=== PATIENT | female | born 1955 | race Two or more races ===

== ENCOUNTER 2020-11-17 08:04 | Outpatient (REF) | payer OTHER, SELFPAY ==
[2020-11-17 10:17] LABS: MANUAL DIFF FLAG NO
[2020-11-17 10:20] LABS: Basophils Percent Auto 0.4 % (0-2); Eosinophils Absolute Auto 0.1 X10*3/uL (0.0-0.4); Eosinophils Percent Auto 3.1 % (0-4); Imm Gran Abs Auto 0.01 X10*3/uL (0.00-0.03); Imm Gran Pct Auto 0.2 % (0.0-0.4); Lymphocytes Percent Auto 21.7 % (20-40); Mean Corpuscular HGB Conc 32.5 g/dl (31.0-35.0); Mean Corpuscular Hemoglobin 28.4 pg (27.0-33.0); Mean Corpuscular Volume 87.3 fL (80-98); Mean Platelet Volume 9.3 fL (9.4-12.3); Monocytes Absolute Auto 0.3 X10*3/uL (0.1-1.2); Monocytes Percent Auto 7.5 % (2-11); Neutrophils Percent Auto 67.1 % (45-73); Platelet Count 336 X10*3/uL (160-400); Red Blood Count 4.58 X10*6/uL (4.20-5.50); White Blood Count 4.5 X10*3/uL (4.8-10.8)
[2020-11-17 10:46] LABS: Anion Gap 14 (12-20); Blood Urea Nitrogen 11 mg/dL (9-16); Carbon Dioxide 23 mmol/L (22-29); Chloride 108 mmol/L (96-108); Estimated Glomerular Filt Rate > 60; Glucose Fasting 97 mg/dL (60-99); Potassium 4.5 mmol/L (3.3-5.1); Sodium 140 mmol/L (135-145)
== END 2020-11-17 08:05 | disposition home or self-care (01) ==
LOC: HO.10HDL 08:04
PROVIDERS: Visit Provider Family Medicine
DX: I10 Essential (primary) hypertension (principal); D72.819 Decreased white blood cell count, unspecified; R73.9 Hyperglycemia, unspecified
CPT/HCPCS: 36415; 80051; 82565; 82947; 84520; 85025

== ENCOUNTER 2020-11-19 07:02 | Day surgery (SDC) | payer OTHER, SELFPAY ==
--- NOTE | 2020-11-18 09:38 | P.CONAN_ITS ---
Documented by User: Marian Morales NP 11/18/20 10:05 HPI - Anesthesia Eval Consult details Narrative: 65yo F for Colonoscopy [facility] Past Medical History Medical History Ascending aorta enlargement Asthma GERD (gastroesophageal reflux disease) HTN (hypertension) Surgical History Surgical History H/O knee surgery Social History Social History Patient Tobacco Use Status: Never used Tobacco Use of substances other than those prescribed or required for medical reasons: No Are you DNR?: No Advance Directives: No Advance Directives Information Provided: Yes Meds Allergies Allergy/AdvReac Type Severity Reaction Status Date / Time No Known Allergies Allergy Verified 11/19/20 07:10 Home Medications Medication Instructions Recorded Confirmed Last Taken Type albuterol sulfate 90 mcg/actuation 2 puff INHALATION Q6H PRN 11/19/20 11/19/20 Unknown History aerosol inhaler (ProAir HFA) fluticasone furoate 100 1 puff PO DAILY 11/19/20 11/19/20 Unknown History mcg/actuation blister powder for inhalation (Arnuity Ellipta) lisinopril 20 mg tablet 1 tab PO DAILY 11/19/20 11/19/20 Unknown History montelukast 10 mg tablet 1 tab PO QPM 11/19/20 11/19/20 Unknown History omeprazole 20 mg capsule,delayed 1 cap PO DAILY 11/19/20 11/19/20 Unknown History release Exam Exam Date and Time: November 18, 2020 0938 Pertinent Lab Results Pertinent Lab Results: Laboratory Tests 11/17/20 11/17/20 08:10 08:10 WBC 4.5 L Hgb 13.0 Hct 40.0 Plt Count 336 Sodium 140 Potassium 4.5 Chloride 108 Carbon Dioxide 23 BUN 11 Creatinine 0.64 Assessment and Plan Assessment Anesthesia Assessment: Chart Reviewed Documented by User: Lily Barrett MD 11/19/20 07:42 [facility] Past Medical History Medical History Ascending aorta enlargement Asthma GERD (gastroesophageal reflux disease) HTN (hypertension) Surgical History Surgical History H/O knee surgery History of Problems with Anesthesia: No Social History Social History Patient Tobacco Use Status: Never used Tobacco Use of substances other than those prescribed or required for medical reasons: No Are you DNR?: No Advance Directives: No Advance Directives Information Provided: Yes Meds Allergies Allergy/AdvReac Type Severity Reaction Status Date / Time No Known Allergies Allergy Verified 11/19/20 07:10 Home Medications Medication Instructions Recorded Confirmed Last Taken Type albuterol sulfate 90 mcg/actuation 2 puff INHALATION Q6H PRN 11/19/20 11/19/20 Unknown History aerosol inhaler (ProAir HFA) fluticasone furoate 100 1 puff PO DAILY 11/19/20 11/19/20 Unknown History mcg/actuation blister powder for inhalation (Arnuity Ellipta) lisinopril 20 mg tablet 1 tab PO DAILY 11/19/20 11/19/20 Unknown History montelukast 10 mg tablet 1 tab PO QPM 11/19/20 11/19/20 Unknown History omeprazole 20 mg capsule,delayed 1 cap PO DAILY 11/19/20 11/19/20 Unknown History release Exam Airway Mallampati Class: II TM Dist: >3cm Loose/Missing/Broken Teeth: No Heart: RRR Lungs: CTA Assessment and Plan Assessment Anesthesia Assessment: Anesthesia Plan Discussed Final Anesthetic Review History of Problems with Anesthesia: No NPO: Yes ASA Class: II Final Preanesthetic Review: Meds/Allgs Chart Reviewed, Consent Obtained/Reviewed and Anes Risks/Benef Reviewed Patient Risk: Low Procedure Risk: Low Anesthetic Plan Anesthetic Plan: MAC: Disposition: Standard PACU
[2020-11-19 07:17] VITALS: BMI 35.1
[2020-11-19 07:28] VITALS: BP 121/70; PULSE 76; RESP 16; TEMP 36.9; O2SAT 94
[2020-11-19] MEDS: Lactated Ringers 1,000 ML 100 ML IVCONT (07:36)
--- NOTE | 2020-11-19 07:50 | MHC.SHP ---
Pre-Procedural Eval Section A Date of Service: 11/19/20 The patient is an INPATIENT: No Section B Chief Complaint: screening Details of Present Illness: see H&P no changes Relevant Family History (Specify if Yes): No Relevant Social History: None Present Medications: see Short Stay Collaborative assessment Medical History: No relevant PMH History of Previous Operations: No relevant previous surgery Allergies: Allergies Allergy/AdvReac Type Severity Reaction Status Date / Time No Known Allergies Allergy Verified 11/19/20 07:10 Review of Systems Sugical H&P ROS: Negative: Constitution, Cardiovascular, Respiratory, Neurological, Psychiatric, Hem-Onc, Allergic/Immunologic, Gastrointestinal, Genitourinary, Musculoskeletal, Integumentary, Endocrine and Eyes/Ears/Nose/Throat Exam Surgical H&P Exam: Normal: HEENT, Normal: Heart, Normal: Lungs, Normal: Extremities, Normal: Abdomen, Normal: Skin and Normal: Neurological Plan Diagnosis/Plan: Unchanged I have reviewed the history and physical and performed a pertinent physical examination on my patient. No changes have occurred unless specified.
--- NOTE | 2020-11-19 08:21 | PM.OP ---
Brief Operative Note Date of Service: 11/19/20 Pre-op diagnosis: screening Post-op diagnosis: same (normal) Surgeon: Aman Salmeron Anesthesia: MAC Was an Financial Assistant used for this Procedure?: No Estimated blood loss (mL): 0 Pathology: none sent Condition: stable Disposition: PACU
[2020-11-19 08:23] VITALS: BP 91/49; PULSE 73; RESP 12; TEMP 36.2; O2SAT 94
[2020-11-19 08:38] VITALS: BP 101/56; PULSE 75; RESP 17; TEMP 36.1; O2SAT 97
--- NOTE | 2020-11-19 08:58 | OP_ITS ---
SURGEON: Aman Salmeron MD INDICATIONS: Colon cancer screening. PREOPERATIVE DIAGNOSIS: POSTOPERATIVE DIAGNOSIS: PROCEDURE PERFORMED: Colonoscopy to the terminal ileum. ESTIMATED BLOOD LOSS: COMPLICATIONS: ANESTHESIA: Monitored anesthesia care. ASSISTANTS: SPECIMENS: DESCRIPTION OF PROCEDURE: The history and physical performed. The risks and benefits of the procedure were explained to the patient. Informed consent was obtained. The patient was placed in left lateral decubitus position. A digital rectal exam was performed and was found to be normal. The Olympus pediatric video colonoscope was introduced into the rectum and advanced to the cecum without difficulty. The cecum was identified by transillumination, palpation, and identification of ileocecal valve. Examination was performed. The scope was removed. She tolerated the procedure well and was taken to recovery area in stable condition. FINDINGS: The terminal ileum was normal. The visualized colonic mucosa was normal. The quality of the prep was good. No polyps were identified. Retroflexed examination showed some small internal hemorrhoids. IMPRESSION: Negative screening colonoscopy. RECOMMENDATION: 1. Follow up as needed. 2. Repeat colonoscopy is recommended in 10 years for average risk individuals. MD ISRAEL Ruano/JOSE / [id number]
== END 2020-11-19 09:32 | disposition home or self-care (01) ==
PROVIDERS: PCP Family Medicine; Visit Provider Internal Medicine Gastroenterology
PROC: 0DJD8ZZ Inspection of Lower Intestinal Tract, Via Natural or Artificial Opening Endoscopic (ICD-10-PCS; CPT 45378; principal; 2020-11-19 08:00)
DX: Z12.11 Encounter for screening for malignant neoplasm of colon (principal); I10 Essential (primary) hypertension; Z79.899 Other long term (current) drug therapy
CPT/HCPCS: 45378

== ENCOUNTER 2021-07-16 08:07 | Outpatient (REF) | payer OTHER, SELFPAY ==
[2021-07-16 09:07] LABS: Anion Gap 11 (12-20); Blood Urea Nitrogen 9 mg/dL (9-16); Carbon Dioxide 27 mmol/L (22-29); Chloride 107 mmol/L (96-108); Estimated Glomerular Filt Rate > 60; Sodium 140 mmol/L (135-145)
== END 2021-07-16 08:08 | disposition home or self-care (01) ==
LOC: HO.LAB 08:07
PROVIDERS: PCP Family Medicine; Visit Provider Family Medicine
DX: I10 Essential (primary) hypertension (principal)
CPT/HCPCS: 36415; 80051; 82565; 84520

== ENCOUNTER 2021-12-20 17:12 | Outpatient (REF) | payer OTHER, SELFPAY ==
[2021-12-20 17:42] LABS: Appearance Urine Clear; Color Urine Yellow; Glucose Urine UA Negative (Negative); Leukocyte Esterase Urine Small (1+) (Negative); Nitrite Urine Negative (Negative); PH 5.5 (5.0-9.0); Specific Gravity - Urine <= 1.005 (1.005-1.025); UMIC TRIGGER UA YES; Urine Blood Negative (Negative); Urine Ketones Negative (Negative); Urine Protein Negative (Neg-Trace)
[2021-12-20 17:48] LABS: Bacteria Urine 1+ (None Seen); Hyaline Casts Urine 0-2 /LPF (0-2); RBC Urine 0-2 /HPF (0-2); Squamous Epithelial Cell Urine 0-2 /HPF (0-2)
== END 2021-12-20 17:13 | disposition home or self-care (01) ==
LOC: HO.LNP 17:12
PROVIDERS: Visit Provider Family Medicine
DX: R30.0 Dysuria (principal)
CPT/HCPCS: 81001; 87086; 87088; 87186

== ENCOUNTER 2022-05-25 09:44 | Outpatient (REF) | payer MEDICARE, OTHER, SELFPAY ==
[2022-05-25 11:10] LABS: Anion Gap 13 (12-20); Blood Urea Nitrogen 12 mg/dL (9-16); Carbon Dioxide 23 mmol/L (22-29); Chloride 109 mmol/L (96-108); Estimated Glomerular Filt Rate > 60; Potassium 4.4 mmol/L (3.3-5.1); Sodium 141 mmol/L (135-145)
== END 2022-05-25 09:45 | disposition home or self-care (01) ==
LOC: HO.10HDL 09:44
PROVIDERS: Visit Provider Family Medicine
DX: I10 Essential (primary) hypertension (principal)
CPT/HCPCS: 36415; 80051; 82565; 84520

== ENCOUNTER 2022-11-13 16:14 | Outpatient (REF) | payer MEDICARE, OTHER, SELFPAY ==
--- NOTE | ~2022-11-13 | XR_ITS ---
EXAMINATION: XR HAND, LEFT CLINICAL INFORMATION: Pain left hand along the fifth metacarpal. COMPARISON: None available. TECHNIQUE: PA, lateral, and oblique views of the left hand. FINDINGS: Severe degenerative changes first carpometacarpal joint with subluxation, destructive joint space narrowing and hypertrophic change. No displaced fracture of the fifth metacarpal. XR/XR hand LT min 3V IMPRESSION: 1. Severe degenerative changes first carpometacarpal joint. 2. No displaced fracture of the fifth metacarpal. Recommend follow-up imaging in 10-14 days if fracture is suspected. Additional imaging with CT scan or MRI should be considered for better visualization as these modalities are much more sensitive for detection of fracture or other underlying pathology.
== END 2022-11-13 16:15 | disposition home or self-care (01) ==
LOC: HO.XRAY 16:14
PROVIDERS: PCP Family Medicine; Visit Provider Family Medicine
DX: M79.642 Pain in left hand (principal)
CPT/HCPCS: 73130

== ENCOUNTER 2022-12-06 09:43 | Outpatient (REF) | payer MEDICARE, OTHER, SELFPAY | END 2022-12-06 09:44 | disposition home or self-care (01) | LOC: HO.10HDL 09:43 | PROVIDERS: Visit Provider Family Medicine | DX: I10 Essential (primary) hypertension (principal); J45.909 Unspecified asthma, uncomplicated | CPT/HCPCS: 36415; 80051; 82565; 84520; 85025 ==

== ENCOUNTER 2023-07-20 15:26 | Outpatient (REF) | payer MEDICARE, OTHER, SELFPAY ==
[2023-07-20 15:41] LABS: MANUAL DIFF FLAG NO
[2023-07-20 15:51] LABS: Basophils Percent Auto 0.4 % (0-2); Eosinophils Absolute Auto 0.2 X10*3/uL (0.0-0.4); Eosinophils Percent Auto 2.8 % (0-4); Hematocrit 38.9 % (37.0-47.0); Hemoglobin 13.1 g/dl (12.0-16.0); Imm Gran Abs Auto 0.01 X10*3/uL (0.00-0.03); Imm Gran Pct Auto 0.2 % (0.0-0.4); Lymphocytes Absolute Auto 1.2 X10*3/uL (1.2-4.9); Lymphocytes Percent Auto 21.8 % (20-40); Mean Corpuscular HGB Conc 33.7 g/dl (31.0-35.0); Mean Corpuscular Hemoglobin 29.8 pg (27.0-33.0); Mean Corpuscular Volume 88.4 fL (80.0-98.0); Mean Platelet Volume 8.9 fL (9.4-12.3); Monocytes Absolute Auto 0.5 X10*3/uL (0.1-1.2); Monocytes Percent Auto 9.6 % (2-11); Neutrophils Absolute Auto 3.5 x10*3/uL (2.0-8.3); Neutrophils Percent Auto 65.2 % (45-73); Platelet Count 323 X10*3/uL (160-400); Red Cell Distribution Width 14.3 % (11.0-16.0); White Blood Count 5.3 X10*3/uL (4.8-10.8)
[2023-07-20 16:56] LABS: Alanine Aminotransferase 16 U/L (0-31); Anion Gap 10 (12-20); Aspartate Amino Transferase 22 U/L (5-31); Blood Urea Nitrogen 10 mg/dL (9-16); Carbon Dioxide 28 mmol/L (22-29); Chloride 107 mmol/L (96-108); Estimated Glomerular Filt Rate > 60; Potassium 4.1 mmol/L (3.3-5.1); Sodium 141 mmol/L (135-145)
== END 2023-07-20 15:27 | disposition home or self-care (01) ==
LOC: HO.LAB 15:26
PROVIDERS: PCP Family Medicine; Visit Provider Family Medicine
DX: I10 Essential (primary) hypertension (principal); D72.819 Decreased white blood cell count, unspecified; K80.20 Calculus of gallbladder without cholecystitis without obstruction
CPT/HCPCS: 36415; 80051; 82565; 84450; 84460; 84520; 85025

== ENCOUNTER → 2023-10-19 07:55 | Outpatient (REF) | payer MEDICARE, OTHER, SELFPAY ==
--- NOTE | 2023-10-19 07:58 | CA_ITS ---
Transthoracic Echocardiogram Patient (Last, First, Middle): Lo Garland K Gender: Female Date of : 1955 Age: 68 Procedure Date: 10/19/2023 Procedure Type: Transthoracic Echocardiogram Location: OP Height: 177.8 cm Weight: 108.86 kg BSA: 2.26 m2 Heart Rate: bpm BP: 120 / 70 mmHg Anesthetic Assistant: TO Referring MD: Franky White MD Symptoms: CA MURMUR R/O SYSTOLIC MURMUR Study Quality: Adequate w contrast Conclusions: - Normal left ventricular size and systolic function. The visually estimated ejection fraction is between 60-65%. - There is severe septal asymmetric hypertrophy. - Normal right ventricular cavity size and systolic function. - There is moderate dilatation of the ascending aorta measuring 4.90 cm. Findings Procedure Information Contrast agent, definity, is being given per protocol without apparent complications. Left Ventricle Normal left ventricular size and systolic function. The visually estimated ejection fraction is between 60-65%. There is no evidence of regional wall motion abnormalities. Diastolic function is normal for age. There is severe septal asymmetric hypertrophy. Right Ventricle Normal right ventricular cavity size and systolic function. Atria The left atrium is mildly dilated. The right atrium is normal in size. Aortic Valve There is a normal trileaflet aortic valve. There is no aortic valve stenosis. There is mild aortic valve regurgitation. Mitral Valve The mitral valve appears normal. There is trace mitral valve regurgitation. There is no mitral valve stenosis. Pulmonic Valve The pulmonic valve is normal. There is trace pulmonic valve regurgitation. Tricuspid Valve Normal tricuspid valve structure. There is trace tricuspid valve regurgitation. Tricuspid regurgitation envelope is inadequate for calculation of right ventricular systolic pressure. Normal right atrial pressure. Great Vessels There is moderate dilatation of the ascending aorta measuring 4.90 cm. The visualized portions of the pulmonary artery and branches are normal. Venous The inferior vena cava is normal in size and collapses greater than 50% with inspiration. Pericardium/Pleural There is no evidence of pericardial effusion. Prior Study Comparison Changes noted compared to prior study dated: 02/06/2009. Moderate ascending aorta dilation 4.9 cm, mild aortic regurgitation. Measurements 2D Linear Measurements IVSd: 1.54 0.6-0.9/0.6-1.0 cm LVIDd: 4.27 3.9-5.3/4.2-5.9 cm LVIDd Index: 1.89 2.4-3.2/2.2-3.1 cm/m2 LVIDs: 2.98 2.0-3.6 cm LVPWd: 0.79 0.7-1.1 cm LA Diam: 3.70 2.7-3.8/3.0-4.0 cm LAIDs Index: 1.64 1.5-2.3 cm/m2 LV Mass: 218.30 67-162/88-224 g LV Mass Index: 96.59 43-95/49-115 g/m2 LVOT Diam: 2.40 3.0+(-)1.3 cm 2D Systolic Function EF 4C: 57.60 >55% EF 2C: 55.40 >55% EF BiP: 56.00 >55% Mitral Valve MV Pk E: 0.49 MV PK A: 0.85 MV Decel Time: 224.00 E/A: 0.60 E'Lateral: 7.07 E'Medial: 6.53 E/E' Med: 7.50 E/E' Lat: 7.00 PHT: 66.00 MVA PHT: 3.33 Decel An[place]co: 2.20 Aortic Valve AoV Pk Ramiro: 1.72 AoV Mn Ramiro: 1.26 AoV VTI: 0.43 AoV Pk Grad: 12.00 Aov Mn Grad: 7.00 JODY Cont.VTI: 2.52 AI Pk Ramiro: 3.69 AI Anasco: 2.05 LVOT LVOT Pk Ramiro: 1.04 LVOT Mn Ramiro: 0.75 LVOT VTI: 0.24 LVOT Pk Grad: 4.00 LVOT Mn Grad: 3.00 LVOT Diam: 2.40 LVOT Area: 4.52 Diastolic Function MV Pk E: 0.49 MV Pk A: 0.85 E/A: 0.60 E'Medial: 6.53 E/E' Med: 7.50 E' Laterial: 7.07 E/E' Lat: 7.00 Right Ventricle TAPSE (mm): 25.70 TVS' Ramiro: 11.90 Tricuspid Valve RA Press: 3.00 Great Vessels Aorta Sinus of Valsalva: 4.36 2.0-3.5 cm Ao Asc: 4.90 2.1-3.4 cm Ao Arch: 3.10 Updated in Other Vendor System with Status of Final Benja Muhammad MD electronically signed on 10/20/2023 10:36:16 PM with status of Final
== END ==
LOC: HO.CARD 07:55
PROVIDERS: PCP Family Medicine; Visit Provider Family Medicine
DX: R01.1 Cardiac murmur, unspecified (principal)
CPT/HCPCS: 93306; Q9957

== ENCOUNTER → 2023-10-19 07:58 | Outpatient (BNV) | payer MEDICARE, OTHER, SELFPAY | PROVIDERS: PCP Family Medicine; Visit Provider Internal Medicine Cardiovascular Disease | DX: I42.2 Other hypertrophic cardiomyopathy (principal); I35.1 Nonrheumatic aortic (valve) insufficiency | CPT/HCPCS: 93306 ==

== ENCOUNTER 2024-01-18 14:35 | Outpatient (REF) | payer MEDICARE, OTHER, SELFPAY ==
--- NOTE | ~2024-01-18 | XR_ITS ---
. EXAMINATION: X-ray lumbar spine. CLINICAL INFORMATION: Low back pain. COMPARISON: X-ray dated August 28, 2015. TECHNIQUE: 4 views of the lumbar spine. FINDINGS: Dextroconvex rotoscoliosis apex at L4. Pseudoarthrosis of the right transverse processes of L5 to the sacrum. Multilevel marginal osteophyte formation and endplate sclerosis with decreased intervertebral disc height. No acute cortical disruption. No gross malalignment. No lytic or blastic lesions. XR/XR lumbar spine 4V min IMPRESSION: Dextroconvex rotoscoliosis and multilevel lumbar spondylosis. 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 Electronically signed by: Juarez Chase MD 01/18/2024 03:46 PM EST
[2024-01-18 16:03] LABS: Anion Gap 11 (12-20); Blood Urea Nitrogen 13 mg/dL (9-16); Carbon Dioxide 24 mmol/L (22-29); Chloride 105 mmol/L (96-108); Estimated Glomerular Filt Rate > 60; Potassium 4.1 mmol/L (3.3-5.1); Sodium 136 mmol/L (135-145)
== END 2024-01-18 14:36 | disposition home or self-care (01) ==
LOC: HO.LAB 14:35
PROVIDERS: PCP Family Medicine; Visit Provider Family Medicine
DX: I10 Essential (primary) hypertension (principal); M54.50 Low back pain, unspecified
CPT/HCPCS: 36415; 72110; 80051; 82565; 84520

== ENCOUNTER → 2024-01-18 14:57 | Outpatient (BNV) | payer MEDICARE, OTHER, SELFPAY | PROVIDERS: PCP Family Medicine; Visit Provider Radiology Diagnostic Radiology | DX: M54.50 Low back pain, unspecified (principal) | CPT/HCPCS: 72110 ==

== ENCOUNTER 2024-02-25 12:57 | Outpatient (AMB) | payer MEDICARE, OTHER, SELFPAY ==
[2024-02-25 13:00] VITALS: BP 118/74; PULSE 71; BMI 34.7
--- NOTE | 2024-02-25 13:00 | A.OFFVIS_ITS ---
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/[place] Intake Note: New patient from Dr White for abnormal echo with ekg has sob if increase activity but nothing new Revenue Cycle Consultant Required: No Supervisor Beehive Kiln: Supervisor Beehive Kiln Present Accompanied by: Spouse Allergies No Known Allergies Allergy (Verified 11/19/20 07:10) Medication List - Last Reconciled 02/25/24 by Louie Beltran MD albuterol sulfate 90 mcg/actuation (ProAir HFA) 2 puffs inhalation Q6H PRN epinephrine IM fluticasone furoate 100 mcg/actuation (Arnuity Ellipta) 1 puff PO DAILY ipratropium bromide intranasal latanoprost 0.005% 1 drp ophthalmic (eye) BEDTIME lisinopril 20 mg PO DAILY montelukast 1 tab PO QPM omeprazole 1 cap PO DAILY HPI Comments Details: Thank you for referring Lo in cardiology consultation today for recent echocardiogram showed moderate asymmetric septal hypertrophy but also showed moderately dilated ascending aorta at 4.8 cm. Patient is a pleasant 68-year-old female with prior history of ascending aortic aneurysm, she says she has known since [address] Jones at [facility] regularly. She said last she heard her thoracic aortic aneurysm at 4.6 cm told that it will need repair at a size of 5 cm due to possible genetic association. 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 One of her half-sisters also has thoracic aortic aneurysm. There was no clear clinical other history of acute thoracic disease in her family or sudden cardiac in the family. She follows this annually by CT scan of her chest. She has longstanding history of hypertension, currently on lisinopril therapy. Blood pressure at home in the range of 130/90. She takes all her medications regularly. Recently had an echocardiogram due to systolic murmur and was noted to have moderate asymmetric septal hypertrophy with septal thickness of 1.5 cm with moderately enlarged thoracic aorta at 4.9 cm along with mild aortic regurgitation. She has no exertional symptoms of chest pain. She denies any resting chest pain. Denies any orthopnea, PND, leg edema. No prolonged palpitation irregular heartbeat. [facility] Medical History GERD (gastroesophageal reflux disease) HTN (hypertension) Asthma Ascending aorta enlargement Surgical History H/O knee surgery Social History Patient Tobacco Use Status: Never used Tobacco Review of Systems Const Denies chills, Denies daytime sleepiness, Denies fatigue, Denies fever(s), Denies frequent falls, Denies poor appetite, Denies snoring, Denies stops breathing during sleep, Denies weakness, Denies weight gain and Denies weight loss Eyes Denies loss of vision ENT Denies dizziness and Denies hearing loss Card Denies chest pain, Denies claudication, Denies leg edema, Denies lightheadedness, Denies palpitations, Denies dyspnea, Denies dyspnea on exertion and Denies orthopnea Resp Denies cough, Denies excessive phlegm production, Denies dyspnea, Denies dyspnea on exertion, Denies snoring and Denies wheezing GI Denies abdominal pain, Denies hematochezia, Denies change in bowel habits, Denies nausea and Denies vomiting Denies urinary frequency and Denies dysuria Musc Denies arthralgias, Denies muscle weakness, Denies numbness and Denies other (frequent falls) Skin/Breast Denies nail changes and Denies rash Neuro Denies Abnormal speech present, Denies dizziness, Denies frequent falls, Denies loss of vision, Denies memory loss, Denies numbness and Denies weakness Psych Denies depression and Denies memory loss Endo Denies fatigue and Denies palpitations Cruz/Lymph Reports easy bruising and Reports other (anemia) Aller/Immun Denies wheezing Physical Exam Vital Signs: Last Vital Signs Pulse 71 02/25/24 13:00 BP 118/74 02/25/24 13:00 BMI result Body Mass Index 34.7 Const General: cooperative, comfortable, no acute distress, alert and awake Nutritional Appearance: obese Orientation/consciousness: patient oriented x3 Limitations: no limitations HEENT Head: Yes normocephalic and Yes atraumatic Neck Neck: Yes trachea midline, Yes supple and Yes no JVD Resp Effort & Inspection: normal respiratory effort Auscultation: clear to auscultation bilaterally Cardio Jugular venous distension: no JVD Palpation: normal PMI Rate: regular rate Rhythm: regular rhythm Heart sounds: S1 normal heart sound present, S2 normal heart sound present, no click, no gallops and Murmur heart sound present diastolic and systolic early GI Auscultation: normal bowel sounds Skin General skin exam: no rashes or lesions noted Neuro General: patient oriented x3 and no focal motor deficits Speech: No Abnormal speech present Extrem General: Yes no clubbing, cyanosis or edema Psych Appearance: grossly normal Office Procedures EKG Details: EKG shows normal sinus rhythm with Q-wave in lead 3, most likely body habitus related and pseudo infarct pattern [id number], Complete Assessment & Plan Assessment & Plan (1) Thoracic aortic aneurysm: Code(s): I71.20 - Thoracic aortic aneurysm, without rupture, unspecified Category: Medical Plan: Patient was thoracic aortic aneurysm possibly genetic. She has variant of Theresa-Danlos syndrome. Re refer her to [facility] for both thoracic aortic aneurysm as well as asymmetric septal hypertrophy. At this point time suggest to continue aggressive blood pressure control. Will add amlodipine 2.5 mg to her regimen. Agree with Cardiothoracic surgery for indication for repair at 5 cm given possible genetic association of thoracic aortic aneurysm. Follow- up CT scan planned in May with [facility]. Advised to continue follow with Cardiothoracic surgery. Avoidance of sudden strenuous isometric exercise was discussed in details. Encouraged her to advise her siblings to follow up with genetic evaluation as well. (2) Asymmetric septal hypertrophy: Code(s): I51.7 - Cardiomegaly Category: Medical Plan: Asymmetric septal hypertrophy without any evidence of obstructive physiology clinically as well as by echocardiogram. Could be related to high blood pressure. Although genetic abnormality is likely. Would suggest follows up with [facility] to evaluate for genetic abnormality associated with hypertrophic cardiomyopathy. She will follow with the same. Continue aggressive blood pressure control. No intervention pursued required for the same. Will follow up in the clinic in 1 year's time, sooner p.r.n.. Orders: Referrals Genetics Referral I51.7 - Cardiomegaly, I71.20 - Thoracic aortic aneurysm, without rupture, unspecified Medications: New amlodipine 2.5 mg PO DAILY 30 tabs 5RF Coding Level of Care Code New Pt Level 4 (87912) Complex EM visit Add On G2211 Diagnoses Thoracic aortic aneurysm I71.20 Asymmetric septal hypertrophy I51.7 CPT Codes EKG - CPT: 37247-[id number], Complete ([id number])
== END 2024-02-25 13:34 | disposition home or self-care (01) ==
PROVIDERS: PCP Family Medicine; Visit Provider Internal Medicine Cardiovascular Disease
DX: I71.20 Thoracic aortic aneurysm, without rupture, unspecified (principal); I51.7 Cardiomegaly
CPT/HCPCS: 93010; 99204; G2211

== ENCOUNTER → 2024-02-25 12:57 | Outpatient (BNVA) | payer MEDICARE, OTHER, SELFPAY | PROVIDERS: PCP Family Medicine; Visit Provider Internal Medicine Cardiovascular Disease | DX: I51.7 Cardiomegaly (principal); I71.20 Thoracic aortic aneurysm, without rupture, unspecified; I10 Essential (primary) hypertension | CPT/HCPCS: 93005; 99202 ==

== ENCOUNTER 2024-08-11 15:01 | Outpatient (REF) | payer MEDICARE, OTHER, SELFPAY ==
[2024-08-11 15:11] LABS: MANUAL DIFF FLAG NO
[2024-08-11 15:23] LABS: Basophils Percent Auto 0.3 % (0-2); Eosinophils Absolute Auto 0.1 X10*3/uL (0.0-0.4); Eosinophils Percent Auto 2.2 % (0-4); Hemoglobin 13.3 g/dl (12.0-16.0); Imm Gran Abs Auto 0.01 X10*3/uL (0.00-0.03); Imm Gran Pct Auto 0.2 % (0.0-0.4); Lymphocytes Absolute Auto 1.1 X10*3/uL (1.2-4.9); Lymphocytes Percent Auto 18.1 % (20-40); Mean Corpuscular HGB Conc 33.3 g/dl (31.0-35.0); Mean Corpuscular Hemoglobin 29.4 pg (27.0-33.0); Mean Corpuscular Volume 88.5 fL (80.0-98.0); Mean Platelet Volume 8.9 fL (9.4-12.3); Monocytes Absolute Auto 0.5 X10*3/uL (0.1-1.2); Monocytes Percent Auto 7.4 % (2-11); Neutrophils Absolute Auto 4.5 x10*3/uL (2.0-8.3); Neutrophils Percent Auto 71.8 % (45-73); Platelet Count 338 X10*3/uL (160-400); Red Blood Count 4.52 X10*6/uL (4.20-5.50); White Blood Count 6.3 X10*3/uL (4.8-10.8)
[2024-08-11 15:46] LABS: Anion Gap 13 (12-20); Blood Urea Nitrogen 9 mg/dL (9-16); Carbon Dioxide 26 mmol/L (22-29); Chloride 106 mmol/L (96-108); Estimated Glomerular Filt Rate > 60; Potassium 4.6 mmol/L (3.3-5.1); Sodium 140 mmol/L (135-145)
--- OUTSIDE RECORDS SUMMARY | 2024-08-11 16:49 | XMS_ITS | Patient Health Record ---
Author Organization [facility] Address [address] [place] [address] Care Team Providers Care Load Tallier Name Role Phone Christopher MALDONADO, Franky Primary Care Provider UnavailAman Rodriguez Jr Unavailable Allergies No Known Allergies Reason For Referral No Information Medications Medication SIG (Take, Route, Frequency, Duration) Notes Start Date End Date Status Singulair 10 MG 1 tablet Orally Once a day for 30 day(s) Active Arnuity Ellipta 100 MCG/ACT Inhalation for 30 Active Magnesium Oxide Acti ve ZyrTEC Allergy 10 MG 1 tablet as needed Orally Once a day for 30 day(s) Active ProAir HFA 108 (90 Base) MCG/ACT 1 puff as needed Inhalation every 4 hrs Active MiraLax (colon prep) 17 GM/SCOOP mixed with Gatorade or Crystal Light Orally begin at 5:00 p.m. the day before the procedure for 1 day 10/21/2020 Active Lisinopril 20 MG TAKE 1 TABLET BY [facility] DAILY Oral for 90 Active Omeprazole 20 MG TAKE 1 CAPSULE BY [facility] EVERY DAY Oral for 90 Active Immunizations Vaccine Route Administration Date Status Comme nts Influenza Unknown 09/27/2019 Administered Social History Tobacco Use: Social History Observation Description Date Details (start date - stop date) Never Smoker NA - NA Tobacco Use/Smoking Question Answer Notes Patient is a nonsmoker Alcohol Screen Question Answer Notes Did you have a drink contain ing alcohol in the past year? Yes How often did you have a dri nk containing alcohol in the past year? Monthly or less (1 point) How many drinks did you have on a typical day when you were drinking in the past year? 1 or 2 drinks (0 point) Points 1 Interpretation Negative Problems Problem Type SNOMED Code ICD Code Onset Dates Problem Status W/U Status Risk Notes Problem 088292327 Colon cancer screening (Z12.11) Active confirmed Problem 392193453 Encounter for other preprocedural examination (Z01.818) Active confirmed Plan Of Treatment Future Test Test Name Order Date COLONOSCOPY 10/21/2020 Insurance Providers Payer Name Payer Address Payer Phone Subscriber Number Group Number Insured Name Patient Relationship to Insured Coverage Start Date Coverage End Date [facility] [address] [place] [address] [phone] [id number] [employer] Self - patient is the insured Medical (General) History Medical History History ICD Code environmental and seasonal allergies Enlarged ascending aorta, Dr. Jones [facility] asthma hypertension Gastroesophageal reflux disease Surgical History Surgery Date(Month/Year) knee surgery bilateral
== END 2024-08-11 15:02 | disposition home or self-care (01) ==
LOC: HO.LAB 15:01
PROVIDERS: PCP Family Medicine; Visit Provider Family Medicine
DX: I10 Essential (primary) hypertension (principal); M81.0 Age-related osteoporosis without current pathological fracture
CPT/HCPCS: 36415; 80051; 82565; 84520; 85025

== ENCOUNTER 2025-02-16 12:10 | Outpatient (AMB) | payer MEDICARE, OTHER, SELFPAY ==
[2025-02-16 12:29] VITALS: BP 120/80; PULSE 75; BMI 35.0
--- NOTE | 2025-02-16 12:29 | MHC.OFFVIS ---
Vital Signs 02/16/25 12:29 Height 5 ft 11 in Weight 251 lb 5.231 oz BMI 35.0 BP 120/80 Blood Pressure Location Lt brachial Position Sitting Pulse 75 Intake Visit Reasons: 1 yr f/up Intake Note: 1 year follow-up with ekg c/o some tightness in chest and sob Forge Tender Required: No Kitchen Porter: Kitchen Porter Present (spouse) Accompanied by: spouse Allergies No Known Allergies Allergy (Verified 11/12/24 08:25) Medication List - Last Reconciled 02/16/25 by Louie Beltran MD albuterol sulfate 90 mcg/actuation (ProAir HFA) 2 puffs inhalation Q6H PRN amlodipine 2.5 mg PO DAILY epinephrine IM fluticasone furoate 100 mcg/actuation (Arnuity Ellipta) 1 puff PO DAILY ipratropium bromide intranasal latanoprost 0.005% 1 drp ophthalmic (eye) BEDTIME lisinopril 20 mg PO DAILY meloxicam 7.5 mg PO DAILY PRN montelukast 1 tab PO QPM omeprazole 20 mg PO DAILY HPI Comments Details: Lo comes for follow-up, accompanied by her . She had a CT scan for follow up of thoracic aortic aneurysm in [facility], I do not have the records of it. Been seen by Dr. Jones. She has no new symptoms from that perspective. She was told that her ascending aortic aneurysm stable and does not require repair. She however says over the last many months she has been experiencing increased exertional shortness of breath and chest tightness when she is climbs 2 flights of stairs. These are new symptoms. Her allergies felt that this could be related to the asthma and prescribed inhalers. She says she has some improvement in his symptoms but continues to have exertional shortness of breath which worries her. She takes all her medications. She denies any orthopnea, PND, leg edema. No lightheadedness, syncope. No prolonged palpitation irregular heartbeat [facility] Medical History Low back pain Health care maintenance GERD (gastroesophageal reflux disease) HTN (hypertension) Asthma Ascending aorta enlargement Surgical History History of colonoscopy (~11/19/20) H/O knee surgery Family History Mother No problems noted. Father No problems noted. Social History Housing: House Patient Tobacco Use Status: Never used Tobacco e-Cigarette/Vaping Use: Never Used service: No Current occupational status: retired Current occupational exposures/hazards: No Cognitive needs: No Hearing needs: No Vision needs: Yes (rx glasses) Review of Systems Const Denies chills, Denies fatigue, Denies fever(s), Denies frequent falls, Denies weakness, Denies weight gain and Denies weight loss ENT Denies dizziness Card Denies chest pain, Denies leg edema, Denies lightheadedness, Denies palpitations, Denies dyspnea, Denies dyspnea on exertion, Denies orthopnea and Denies other (loss of consciousness) Resp Denies cough, Denies dyspnea and Denies dyspnea on exertion GI Denies hematochezia and Denies change in stool character Musc Denies abnormal gait, Denies muscle weakness, Denies numbness, Denies radiating pain into limb and Denies tingling Neuro Denies Abnormal speech present, Denies abnormal gait, Denies dizziness, Denies frequent falls, Denies numbness, Denies tingling and Denies weakness Endo Denies fatigue and Denies palpitations Physical Exam Vital Signs: Last Vital Signs Pulse 75 02/16/25 12:29 BP 120/80 02/16/25 12:29 BMI result Body Mass Index 35.0 Const General: cooperative, comfortable, no acute distress, alert and awake Nutritional Appearance: obese Orientation/consciousness: patient oriented x3 Limitations: no limitations HEENT Head: Yes normocephalic and Yes atraumatic Neck Neck: Yes trachea midline, Yes supple and Yes no JVD Resp Effort & Inspection: normal respiratory effort Auscultation: clear to auscultation bilaterally Cardio Jugular venous distension: no JVD Palpation: normal PMI Rate: regular rate Rhythm: regular rhythm Heart sounds: S1 normal heart sound present, S2 normal heart sound present, no click, no gallops and Murmur heart sound present diastolic and systolic early GI Auscultation: normal bowel sounds Skin General skin exam: no rashes or lesions noted Neuro General: patient oriented x3 and no focal motor deficits Speech: No Abnormal speech present Extrem General: Yes no clubbing, cyanosis or edema Psych Appearance: grossly normal Office Procedures EKG Details: EKGs shows normal sinus rhythm with isolated Q-waves in lead 3 most likely suggestive of pseudo inferior infarct pattern related to body habitus [id number], Complete Assessment & Plan Assessment & Plan (1) Short of breath on exertion: Code(s): R06.02 - Shortness of breath Category: Medical Plan: Shortness of breath on exertion in this elderly woman with multiple risk factors. Obstructive coronary artery disease needs to be ruled out. Will suggest a exercise myocardial perfusion imaging to further assess for the same. She is agreeable. Also suggest an echocardiogram to evaluate for cardiac structure and function to evaluate for diastolic dysfunction and pulmonary hypertension. These tests will be scheduled in near future. (2) Thoracic aortic aneurysm: Code(s): I71.20 - Thoracic aortic aneurysm, without rupture, unspecified Category: Medical Plan: Thoracic aortic aneurysm which is moderate in severity and being followed by Cardiothoracic surgery at [facility]. This has remained stable. Follow-up echocardiogram as above. I think the best test in his senior living to follow up would be an echocardiogram rather than subjecting her to repeated CTA with the associated contrast and radiation exposure. Continue aggressive blood pressure control. Blood pressure is currently well optimized on current medications. Improvement of good blood pressure control was discussed. Target goal blood pressure less than 130/84. Requires no surgical intervention at this point time. Advised to avoid sudden strenuous isometric exercise. Advised to seek emergency care for sudden acute chest pain. (3) Asymmetric septal hypertrophy: Code(s): I51.7 - Cardiomegaly Category: Medical Plan: Asymmetric septal hypertrophy without any overt signs of heart failure. Follow-up echocardiogram as above. No interventions required. Will follow up in the clinic in 1 year's time, sooner PRN. Thank you for allowing me to partake in her care Orders: Orders CA echo transthoracic complete Today R06.02 - Shortness of breath CA stress test Today R06.02 - Shortness of breath NM cardiolite stress test 2 Weeks R06.02 - Shortness of breath, R07.9 - Chest pain, unspecified Coding Level of Care Code Est Pt Level 4 (42854) Diagnoses Short of breath on exertion R06.02 Thoracic aortic aneurysm I71.20 Asymmetric septal hypertrophy I51.7 CPT Codes EKG - CPT: 16736-[id number], Complete ([id number])
--- OUTSIDE RECORDS SUMMARY | 2025-02-16 15:25 | XMS_ITS | Clinical Summary ---
Author Organization [address] Address [address] [place] [id number] Care Team Providers Care Lead Manufacturing Engineering Tech Name Role Phone Franky White MD Primary Care Provider [phone] Allergies Active Allergy Reactions Criticality Noted Date Comments Seasonal Allergies 09/21/2017 Medications lisinopril (PRINIVIL,ZESTRI L) 10 MG tablet Take 10 mg by mouth daily.. Active montelukast (SINGULAIR) 10 mg tablet Take 10 mg by mouth nightly.. Active cetirizine HCl (ZYRTEC ORAL) Take by mouth.. 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 Family History Medical History Relation Name Comments Stroke Maternal Grandfather Alzheimer's disease Mother No Known Problems Paternal Aunt Diabetes Paternal Grandfather No Known Problems Paternal Uncle 7 total siblings to d ad Aortic aneurysm Sister 3 Tasneem Relation Name Status Comments Father Spanish heritag e Maternal Grandfather (Age 90-100 ) Tall Maternal Grandmother (Age 90-110 ) Maternal Uncle 90-95 6'2 Mother (Age 83) [facility] 6' tall Paternal Aunt Paternal Grandfather Paternal Grandmother Paternal Uncle 7 total siblings to dad Sister 1 Lily Alive 5'6 Sister 2 Chanelle Alive 5'6 Sister 3 Tasneem Alive Tall Sister 4 half sister-maternal Alive Sister 5 half sister-maternal Alive Social History Tobacco Use Types Packs/Day Years Used Date Smoking Tobacco: Never Smokeless Tobacco: Never PHQ-2 Answer Date Recorded PHQ-2 Score 0 09/01/2018 Comments Unknown Sex and Gender Information Value Date Recorded Sex Assigned at Not on file Legal Sex Female 1:07 PM EDT Gender Identity Not on file Sexual Orientation Not on file Last Filed Vital Signs Vital Sign Reading Time Taken Comments Blood Pressure 126/76 09/21/2017 1:33 PM EDT Pulse 85 09/21/2017 1:33 PM EDT Temperature 36.7 C (98.1 F) 09/21/2017 1:33 PM EDT Respiratory Rate - - Oxygen Saturation 97% 09/21/2017 1:33 PM EDT Inhaled Oxygen Concentration - - Weight 107.9 kg (237 lb 12.8 oz) 09/21/2017 1:33 PM EDT Height - - Body Mass Index - - Plan of Treatment Health Maintenance Due Date Last Done Comments HIV screening 10/12/1968 Hepatitis C screening 10/12/1973 Tetanus adult (Td q 10,TDAP once) 1975 Breast cancer screening 1995 Lipid disorder screening 1995 Colon cancer screening, Colonoscopy 10/12/2000 Diabetes screening 10/12/2000 Shingles vaccine (Shingrix) (1 of 2 - Shingrix (RZV) 2 Dose Standard Series) 10/12/2005 Pneumococcal Vaccine (50+ ye ars) (2 of 2 - PCV) 09/27/2008 09/28/2007 Osteoporosis screening (bone density) 10/12/2020 Influenza vaccine 09/26/2024 09/27/2019 Covid-19 vaccine series (1 - 2024-26 season) 2024 RSV Immunization (1 - 1-dose 75+ series) 10/12/2030 Cervical cancer screening Discontinued Meningococcal B Vaccine Aged Out No l onger eligible based on patient's age to complete this topic Meningococcal Vaccine Aged Out No grace santos eligible based on patient's age to complete this topic Insurance CIGNA CIGNA CIGNA Member Subscriber Plan / Payer (Ef fective 2002-Present) Name:Amy Garlandecca Relation to Subscriber:Self Name:Lo Garland Payer ID:[id number] (NAIC) Type:Not on file Address: [facility] [id number] [address] [facility] Care Teams Lead Manufacturing Engineering Tech Relationship Specialty Start Date End Date Franky White MD [address] [place] [address] [place] [address] PCP - General Internal Medicine 09/21/17
--- OUTSIDE RECORDS SUMMARY | 2025-02-16 15:25 | XMS_ITS | Patient Health Record ---
Author Organization [facility] Address [address] [place] [address] Care Team Providers Care Athletic Monitor Name Role Phone Christopher (RETIRED) Franky MALDONADO Primary Care Provider Unavailable Aman Salmeron Jr Unavailable Allergies No Known Allergies Reason For Referral No Information Medications Medication SIG (Take, Route, Frequency, Duration) Notes Start Date End Date Status Singulair 10 MG Tablet 1 tablet Orally O nce a day; Duration: 30 day(s) Active Arnuity Ellipta 100 MCG/ACT Aerosol Powder Breath Activated Inhalation; Duration: 30 Active Magnesium Oxide Acti ve ZyrTEC Allergy 10 MG Tablet 1 tablet as needed Orally Once a day; Duration: 30 day(s) Active ProAir HFA 108 (90 Base) MCG/ACT Aerosol Solution 1 puff as needed Inhalation every 4 hrs Active MiraLax (colon prep) 17 GM/SCOOP Powder mixed with Gatorade or Crystal Light Orally begin at 5:00 p.m. the day before the procedure; Duration: 1 day 10/21/2020 Active Lisinopril 20 MG Tablet TAKE 1 TABLET BY MOUTH DAILY Oral; Duration: 90 Active Omeprazole 20 MG Capsule Delayed Release TAKE 1 CAPSULE BY MOUTH EVERY DAY Oral; Duration: 90 Active Immunizations Vaccine Route Administration Date Status Comme nts Influenza Unknown 09/27/2019 Administered Social History Tobacco Use: Social History Observation Description Date Details (start date - stop date) Never Smoker NA - NA Social History Drugs/Alcohol: Social Info Question Answer Notes Alcohol Screen Did you have a drink containing alcohol in the past year? Yes How often did you have a drink containing alcohol in the past year? Monthly or less (1 point) How many drinks did you have on a typical day when you were drinking in the past year? 1 or 2 drinks (0 point) Points 1 Interpretation Negative Tobacco Use: Social Info Question Answer Notes Tobacco Use/Smoking Patient is a nonsmoker Additional Details Category Social Info Options Details Miscellaneous: Marital status: Occupation: computer program hard[employer] Problems Problem Type SNOMED Code ICD Code Onset Dates Problem Status W/U Status Risk Notes Problem Colon cancer screening (693869084) Colon cancer screening (Z12.11) Active confirmed Problem Pre-procedure evaluation check (160929318) Encounter for other preprocedural examination (Z01.818) Active confirmed Plan Of Treatment Future Test Test Name Order Date COLONOSCOPY 10/21/2020 Insurance Providers Payer Name Payer Address Payer Phone Subscriber Number Group Number Insured Name Patient Relationship to Insured Coverage Start Date Coverage End Date [facility] [address] [address] [place] [address] [id number] [employer] LLOYD Self - patient is the insured Medical (General) History Medical History History ICD Code environmental and seasonal allergies Enlarged ascending aorta, Dr. Jones [facility] asthma hypertension Gastroesophageal reflux disease Surgical History Surgery Date(Month/Year) knee surgery bilateral
--- OUTSIDE RECORDS SUMMARY | 2025-02-16 15:25 | XMS_ITS | Encounter Summary ---
Author Organization [facility] Address [address] [place] [phone] Care Team Providers Care Soil And Plant Scientist Name Role Phone Franky White MD Primary Care Provider [phone] Encounter Details Date Type Department Care Team (Late st Contact Info) Description 09/24/2017 Scanned Document Cardiovascular Medicine at [address] [place] [address] Alexander Yoder MD [address] [place] [phone] Social History Tobacco Use Types Packs/Day Years Used Date Smoking Tobacco: Never Smokeless Tobacco: Never Comments Unknown Sex and Gender Information Value Date Recorded Sex Assigned at Not on file Legal Sex Female 1:07 PM EDT Gender Identity Not on file Sexual Orientation Not on file documented as of this encounter Plan of Treatment Not on file documented as of this encounter Visit Diagnoses Not on filedocumented in this encounter Additional Health Concerns Assessment Noted Time PHQ-9 Depression Total Score: 0 09/22/19 18 1:35 PM EDT documented as of this encounter Care Teams Soil And Plant Scientist Relationship Specialty Start Date End Date Franky White MD [address] [place] [address] [place] [phone] PCP - General Internal Medicine 09/21/17 documented as of this encounter
--- OUTSIDE RECORDS SUMMARY | 2025-02-16 15:25 | XMS_ITS | Clinical Summary ---
Author Organization [facility] Address [address] [id number] Care Team Providers Care Instant Potato Processor Name Role Phone Franky White Primary Care Provider [phone] Social History Tobacco Use Types Packs/Day Years Used Date Smoking Tobacco: Never Assessed Comments Unknown Sex and Gender Information Value Date Recorded Sex Assigned at Female 06/02/2024 10:21 AM EDT Legal Sex Female 5:54 PM EDT Gender Identity Female 10/29/2024 11:18 AM EDT Sexual Orientation Straight 10/29/2024 11 :18 AM EDT Plan of Treatment Health Maintenance Due Date Last Done Comments Cologuard 1955 Colon Cancer Screening 1955 Colonoscopy 1955 FOBT / Fit Test 1955 Hepatitis C Screening 1955 Sigmoidoscopy 1955 Medicare AWV 10/12/1956 DTaP,Tdap,and Td Vaccines (1 - Tdap) 10/12/1977 Mammogram 1995 Osteoporosis Screening 10/12/2005 Pneumococcal Vaccine: 50+ Years (1 of 1 - PCV) 10/12/2005 Alcohol/Substance Use Screening 02/27/2024 Depression Screening and Follow-Up 02/27/2024 Fall Risk Screening 02/27/2024 Health Care Proxy Review 02/27/2024 Social Drivers of Health Annual Screening 02/27/2024 Influenza Vaccine (#1) 2024 , 12/08/2022, 01/09/2022, Additional history exists COVID-19 Vaccine ( season) 2024 02/22/2024, 12/08/2022, 01/09/2022, Additional history exists RSV Vaccine (60+ years old and patients) Completed 01/01/2023 Zoster Vaccines Completed 03/16/2023, 01/01/2023 Hepatitis B Vaccines Aged Out No long er eligible based on patient's age to complete this topic Insurance Member Subscriber Plan / Payer (Ef fective 2024-Present) Name:Lo Garalnd Relation to Subscriber:Self Name:Lo Garland Payer ID:[id number] Type:Not on file Address: [facility], [address] [phone] [place] [id number] Care Teams Instant Potato Processor Relationship Specialty Start Date End Date Franky White [address] [place] [address] [place] [address] PCP - General Internal Medicine 05/28/24
== END 2025-02-16 12:48 | disposition home or self-care (01) ==
LOC: HO.HCS 12:10
PROVIDERS: PCP Family Medicine; Visit Provider Internal Medicine Cardiovascular Disease
DX: R06.02 Shortness of breath (principal); I71.20 Thoracic aortic aneurysm, without rupture, unspecified; I51.7 Cardiomegaly
CPT/HCPCS: 93010; 99214

== ENCOUNTER → 2025-02-16 12:10 | Outpatient (BNVA) | payer MEDICARE, OTHER, SELFPAY | PROVIDERS: PCP Family Medicine; Visit Provider Internal Medicine Cardiovascular Disease | DX: R06.02 Shortness of breath (principal); I71.20 Thoracic aortic aneurysm, without rupture, unspecified | CPT/HCPCS: 93005; 99212 ==